=== PATIENT | female | born 1995 | race Caucasian/White ===

== ENCOUNTER 2020-10-05 19:36 | Emergency (ER) | payer OTHER ==
[~2020-10-05 19:36] MED LIST: PEPCID AC20 MG PO; VENTOLIN (2.5 MG/3 M INH
== END 2020-10-05 21:36 | disposition home or self-care (01) ==
LOC: FER 19:36
DX: S93.402A Sprain of unspecified ligament of left ankle, initial encounter (principal); J45.909 Unspecified asthma, uncomplicated; W19.XXXA Unspecified fall, initial encounter; Y92.89 Other specified places as the place of occurrence of the external cause
CPT/HCPCS: 73610